=== PATIENT | female | born 1955 | race Asian ===

== ENCOUNTER 2018-05-18 13:18 | Emergency (ER) | payer OTHER ==
[2018-05-18] MEDS: ACETAMINOPHEN 325 MG TAB PO (13:51)
[2018-05-18] MEDS: DEXAMETHASONE 4 MG TAB PO (13:54)
== END 2018-05-18 14:03 | disposition home or self-care (01) ==
LOC: FTE 14:03
DX: H93.92 Unspecified disorder of left ear (principal); I10 Essential (primary) hypertension; Z79.82 Long term (current) use of aspirin
CPT/HCPCS: 99283; Z7502

== ENCOUNTER 2019-02-14 13:38 | Emergency (ER) | payer OTHER ==
[2019-02-14 14:11] LABS: URINE BLOOD (Dip) POC 1+ (NEGATIVE); URINE GLUCOSE (Dip) POC Negative (NEGATIVE); URINE KETONES (Dip) POC Negative (NEGATIVE); URINE LEUKOCYTE EST (Dip) POC Negative (NEGATIVE); URINE NITRITE (Dip) POC Negative (NEGATIVE); URINE TOTAL PROTEIN POC Negative (NEGATIVE)
[2019-02-14 14:11] LABS: URINE PH (Dip) POC 5.5 (5.0-8.5)
== END 2019-02-14 14:50 | disposition home or self-care (01) ==
LOC: FTE 13:38
DX: N39.0 Urinary tract infection, site not specified (principal)
CPT/HCPCS: 81003; 87086; 99283